=== PATIENT | male | born 2000 | race Two or more races ===

== ENCOUNTER 2020-04-02 10:44 | Emergency (ER) | payer MEDICAID ==
[~2020-04-02] VITALS: Ht 175.3 cm; Wt 64.0 kg
[2020-04-02 10:47] VITALS: BP 137/71
[2020-04-02] MEDS ORDERED: IBUPROFEN 600MG TABLET PO ONE (11:00)
== END 2020-04-02 11:50 | disposition home or self-care (01) ==
LOC: ER 10:44
DX: S20.212A Contusion of left front wall of thorax, initial encounter (principal); W22.09XA Striking against other stationary object, initial encounter; Y93.9 Activity, unspecified; Y92.9 Unspecified place or not applicable
CPT/HCPCS: 71101; 99283